=== PATIENT | female | born 2000 | race Caucasian/White ===

== ENCOUNTER 2019-11-01 14:46 | Outpatient (CLI) | payer OTHER ==
--- NOTE | 2019-11-01 15:16 | RAD ---
2 views abdomen: 11/01/2019 COMPARISON: None HISTORY: Mid abdominal pain FINDINGS: Upright imaging demonstrates no free intraperitoneal air. The bowel gas pattern appears non obstructed. No acute osseous abnormality. IMPRESSION: No acute findings.
== END 2019-11-01 14:47 | disposition home or self-care (01) ==
LOC: SCSRAD 14:46
PROVIDERS: ATTEND Family Medicine
DX: R10.9 Unspecified abdominal pain (principal)
CPT/HCPCS: 74019; 87086